=== PATIENT | male | born 1960 | race Caucasian/White ===

== ENCOUNTER 2017-03-03 09:24 | Day surgery (SDC) | payer OTHER ==
[~2017-03-03 09:24] MED LIST: LIDOCAINE HCL 1% MPF SOL ONE; PROPOFOL 500 MG/50 ML EMU IV ONE
[2017-03-03 09:54] VITALS: TEMP 98.9
[2017-03-03] MEDS ORDERED: PROPOFOL 500 MG/50 ML EMU IV ONE (11:28)
[2017-03-03 11:48] VITALS: O2SAT 98
[2017-03-03 12:04] VITALS: BP 138/81; PULSE 93; RESP 20
== END 2017-03-03 12:34 | disposition home or self-care (01) | DRG 951 ==
LOC: SURG 09:24
PROVIDERS: ATTEND Internal Medicine Gastroenterology
DX: Z12.11 Encounter for screening for malignant neoplasm of colon (principal); D12.0 Benign neoplasm of cecum; K57.30 Diverticulosis of large intestine without perforation or abscess without bleeding; Z87.19 Personal history of other diseases of the digestive system; K64.8 Other hemorrhoids
CPT/HCPCS: 99001; J2001; J2704